=== PATIENT | female | born 1985 | race Caucasian/White ===

== ENCOUNTER 2020-08-12 10:14 | Outpatient (REF) | payer BC, SELFPAY | END 2020-08-12 10:15 | disposition home or self-care (01) | LOC: HO.LAB 10:14 | PROVIDERS: Visit Provider Internal Medicine | DX: Z20.828 Contact with and (suspected) exposure to other viral communicable diseases (principal) | CPT/HCPCS: C9803; U0003 ==

== ENCOUNTER 2021-03-16 21:01 | Emergency (ER) | payer BC, SELFPAY ==
[2021-03-16 21:02] VITALS: BP 137/79; PULSE 67; RESP 16; TEMP 36.6; O2SAT 100; BMI 20.9
--- NOTE | 2021-03-16 22:27 | ED.EYEPROB ---
HPI - Eye Problem General Chief complaint: Eye Problems Stated complaint: Eye pain Time Seen by Provider: 03/16/21 22:27 Source: patient Mode of arrival: ambulatory Limitations: no limitations History of Present Illness chief complaint: eye redness Onset (ago): day(s) (1) Onset description: gradual Location: left eye Eye Symptoms: redness Place: home Mechanism: none Severity: mild Associated symptoms: none Treatments Prior to Arrival: none Related Data Patient tetanus UTD: Yes Previous Rx's Medication Instructions Recorded polymyxin B sulf-trimethoprim 1 drp OPHTHALMIC-LEFT QID 5 Days 03/16/21 [Polytrim] #10 ml Allergies Allergy/AdvReac Type Severity Reaction Status Date / Time No Known Allergies Allergy Unverified 06/12/20 15:52 Review of Systems Review of Systems: Constitutional: No Weight loss, No Fever, No Chills, No Night Sweats, No Fatigue, No Malaise ENT/Mouth: No Hearing loss, No Ear Pain, No Nasal Congestion, No Sinus Pain, No Hoarseness, No sore throat, No Rhinorrhea, No Swallowing Difficulty Eyes: No Eye Pain, No Swelling, No Redness, No Foreign Body, No Discharge, No Vision Changes Cardiovascular: No Chest Pain, No SOB, No Dyspnea on Exertion, No Orthopnea, No Edema, No Palpitations Respiratory: No Cough, No Sputum, No Wheezing, No Smoke Exposure, No Dyspnea Skin: No Skin Lesions, No rash Neuro: No Weakness, No Numbness, No Paresthesias, No Loss of Consciousness, No Dizziness, No Headache Psych: No Anxiety/Panic Heme/Lymph: No Bruising, No Bleeding,No Lymphadenopathy Endocrine: No Polyuria, No Polydipsia, No Temperature Intolerance Yes all other systems are reviewed and are negative [facility] Past Medical History Medical History No known health problems Social History Social History Advance Directives: No Advance Directives Information Provided: Yes Patient : No Physical Exam Vital Signs: Vital Signs: Last Vital Signs Temp 97.8 F 03/16/21 21:02 Pulse 67 03/16/21 21:02 Resp 16 03/16/21 21:02 BP 137/79 03/16/21 21:02 Pulse Ox 100 03/16/21 21:02 Body Mass Index 20.9 Review Const: General: cooperative, healthy appearing, comfortable, no acute distress, well developed, alert and awake HENMT: Head: Yes normal to inspection Ears: hearing grossly normal bilaterally Eyes: General: appearance normal, both eyes and all related structures Visual Soni: normal visual soni by confrontation Eyelids: Yes eyelids normal Conjunctivae: conjunctival abnormal left subconjunctival hemorrhage (Very small in the left inferior aspect) Sclerae: sclerae normal Corneas: corneas normal Pupils: Equal, round and reactive pupils present Neck: Neck: Yes normal visual inspection Chest: Chest palpation & inspection: normal inspection of the chest and normal palpation of entire chest wall Resp: Effort & Inspection: normal respiratory effort, no audible wheezes, no cough and no respiratory distress Skin: General skin exam: no rashes or lesions noted, elasticity normal and turgor normal Wounds: no wounds Nails: normal Neuro: General: normal sensation to monofilament Cranial nerves: Yes Equal, round and reactive pupils present Extrem: General: No cyanosis Psych: Appearance: grossly normal and well kempt Course Course Course Narrative: Fracture versus irritant conjunctivitis will treat, educated, return and follow-up instructions provided. Does not wear contacts. No foreign body. Discharge Plan Discharge Clinical Impression: Conjunctivitis Patient Disposition: Home, Self-Care Instructions: Conjunctivitis (ED) Prescriptions: New polymyxin B sulf-trimethoprim [Polytrim] 10,000 unit- 1 mg/mL drops 1 drp ophthalmic-Left QID 5 Days Qty: 10 RF: 0 Referrals: Aileen Hankins MD [Primary Care Provider] - 5 days
== END 2021-03-16 22:55 | disposition home or self-care (01) ==
PROVIDERS: Emergency Provider Student in an Organized Health Care Education/Training Program; PCP Internal Medicine
DX: H10.9 Unspecified conjunctivitis (principal)
CPT/HCPCS: 99283

== ENCOUNTER 2024-12-26 08:48 | Outpatient (AMB) | payer BC, SELFPAY ==
--- NOTE | 2024-12-26 08:54 | MHC.OFFVIS ---
Intake Visit Reasons: Umbilical Hernia Intake Note: Patient referred by Dr. Hankins for Umbilical hernia. Noticed in 2020. Patient c/o: denies pain, bulging. Would like to get lipo and hernia has to be repaired. Pinking Machine Operator Required: No Allergies No Known Allergies Allergy (Unverified 12/26/24 08:57) HPI Comments Details: Patient presents with an umbilical hernia. She has had this since 2020. She would like to have it repaired. She otherwise tolerating a diet. She has regular bowel habits. She does occasional strenuous activities. Chart was reviewed and patient evaluated [facility] Medical History No known health problems Physical Exam Chest Other: Chest breath sounds bilaterally, HS 1 in 2 GI Other: Patient was examined both supine and standing with Valsalva. Abdomen is soft. Bilateral groin exam negative. Patient was a roughly 3 cm irreducible umbilical hernia Assessment & Plan Assessment & Plan (1) Incarcerated umbilical hernia: Code(s): K42.0 - Umbilical hernia with obstruction, without gangrene Category: Surgical Plan Risks, benefits, alternatives of 0 umbilical hernia repair with mesh were reviewed with the patient and included but not limited to bleeding, infection, recurrence, numbness, pain, scarring, bowel injury and the patient wishes to proceed. All questions answered. Arrangements will be made for this on a day which is convenient for her. Coding Level of Care Code New Pt Level 5 (65493) Diagnoses Incarcerated umbilical hernia K42.0
--- OUTSIDE RECORDS SUMMARY | 2024-12-26 09:26 | XMS_ITS | Patient Health Record ---
[facility] Organization [facility] Address [address] [place] [address] Care Team Providers Care Color Specialist Name Role Phone Cr HERNANDEZ, Aileen Primary Care Provider NATALIYA Lantigua Unavailable [phone] Allergies No Known Allergies Reason For Referral No Information Medications Medication SIG (Take, Route, Frequency, Duration) Notes Start Date End Date Status metroNIDAZOLE 500 MG 1 tablet Orally Twi ce a day for 7 days 07/23/2022 Not-Taking Metrogel 0.75 % 1 application PV qhs for 5 days 05/26/2021 Not-Taking metroNIDAZOLE 500 MG 1 tablet Orally Twi ce a day for 7 days 05/26/2021 Not-Taking miSOPROStol 200 MCG as directed Orally 8 -12 hrs prior to appointment for 1 days 10/20/2020 Not-Taking Social History Tobacco Use: Social History Observation Description Date Details (start date - stop date) Never Smoker NA - NA Tobacco Use/Smoking Question Answer Notes Are you a nonsmoker Alcohol Screen (Audit-C) Question Answer Notes Did you have a drink containing alcohol in the p ast year? No Points 0 Interpretation Negative Sexual History Question Answer Notes Had sex in the past 12 months (vaginal, oral, or anal)? Yes with Men only Use protection? No Have you ever had a Sexually transmitted disease ? No Last menstrual period 10/01/20 Problems Problem Type SNOMED Code ICD Code Onset Dates Problem Status W/U Status Risk Notes Problem Amenorrhea (96244970) Amenorrhea, unspecified (N91.2) Active confirmed Problem Abnormal uterine bleeding (25336016600306 ) Abnormal uterine and vaginal bleeding, unspecified (N93.9) Active confirmed Plan Of Treatment Pending Test Test Name Order Date Sonohysterogram 10/20/2020 Test, Urine 10/31/2020 Test, Urine 07/23/2022 ANTI-HEPATITIS C 07/23/2022 HEP. B SURF. AG 07/23/2022 SYPHILIS TESTING 07/23/2022 HIV AB-AG 4TH GENERATION 07/23/2022 Insurance Providers Payer Name Payer Address Payer Phone Subscriber Number Group Number Insured Name Patient Relationship to Insured Coverage Start Date Coverage End Date [employer] [place] [address] [place] [address] [phone] [id number] HIEN MICHEL Self - patient is the insured Medical (General) History Surgical History Surgery Date(Month/Year)
== END 2024-12-26 09:02 | disposition home or self-care (01) ==
LOC: HO.HGS 08:49
PROVIDERS: PCP Internal Medicine; Visit Provider Surgery
DX: K42.0 Umbilical hernia with obstruction, without gangrene (principal)
CPT/HCPCS: 99204

== ENCOUNTER 2025-02-06 15:35 | Outpatient (AMB) | payer BC, SELFPAY ==
--- NOTE | 2025-02-06 15:37 | A.OFFVIS_ITS ---
Vital Signs 02/06/25 15:44 Height 5 ft 2 in Weight 139 lb BMI 25.4 BP 152/80 H Blood Pressure Location Lt brachial Position Sitting Pulse 67 Intake Visit Reasons: Umbilical hernia with obstruction, without gangren Intake Note: Patient is seen in office to discuss surgery, umbilical hernia seen Dr Medina on 12/26/24. 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 She says that her plastic surgeon had mentioned this to her. She is going for liposuction/abdominoplasty procedure and her plastic surgeon had instructed her to have the umbilical hernia repair before her plastic surgery. She describes some discomfort on the umbilicus She denies any GI complaints She says she is in good health overall. [facility] Medical History (Updated 02/06/25 @ 15:57 by Walter Antonio MD) Umbilical hernia No known health problems Review of Systems Const Denies chills and Denies fever(s) Card Denies chest pain, Denies dyspnea and Denies dyspnea on exertion Resp Denies cough, Denies dyspnea and Denies dyspnea on exertion GI Denies hematochezia and Denies change in bowel habits Denies hematuria Musc Denies back pain and Denies limited range of motion Neuro Denies focal weakness and Denies convulsions Psych Denies depression and Denies mood swings Physical Exam Vital Signs: Last Vital Signs Pulse 67 02/06/25 15:44 BP 152/80 H 02/06/25 15:44 BMI result Body Mass Index 25.4 Const General: comfortable and no acute distress Orientation/consciousness: patient oriented x3 Neck Neck: Yes no lymphadenopathy Resp Auscultation: clear to auscultation bilaterally Cardio Rhythm: regular rhythm GI Other: Umbilical hernia reducible, about 1.5 cm in diameter Palpation (GI): Soft to palpation, nontender and no guarding Neuro General: patient oriented x3 Assessment & Plan Assessment & Plan (1) Umbilical hernia: Code(s): K42.9 - Umbilical hernia without obstruction or gangrene Category: Medical Plan She has a small, reducible umbilical hernia as described above. I explained to her the technique of repair of the umbilical hernia with possible mesh placement. I reviewed the risks including but not limited to bleeding, infections, injury to the bowel, recurrence, postop pain, as well as the benefits and alternatives. I also explained to her what to expect postoperatively. She understands and wants to proceed. Coding Level of Care Code New Pt Level 3 (66729) Diagnoses Umbilical hernia K42.9
--- OUTSIDE RECORDS SUMMARY | 2025-02-06 15:41 | XMS_ITS | Patient Health Record ---
[facility] Organization [facility] Address [address] [place] [address] Care Team Providers Care Kayak Maker Name Role Phone Cr HERNANDEZ, Aileen Primary Care Provider NATALIYA Lantigua Unavailable [phone] Allergies No Known Allergies Reason For Referral [...] Problem Status W/U Status Risk Notes Problem Amenorrhea, unspecified (N91.2) Active confirmed Problem Abnormal uterine bleeding (497291969610 00) Abnormal uterine and vaginal bleeding, unspecified (N93.9) [...] End Date [employer] [address] [place] [address] [id number] 11 HIEN MICHEL Self - patient is the insured Medical (General) History Surgical History Surgery Date(Month/Year)
--- OUTSIDE RECORDS SUMMARY | 2025-02-06 15:41 | XMS_ITS | Continuity of Care Document ---
Author Organization [facility] Address [address] [place] [address] Phone Care Team Providers Care Health And Wellness Coach Name Role Phone Morris Hobbs Unavailable Unavailable Advance Directives Directive Yes / No Effective Date File Name No Information Encounters Encounter Description Practice Location Reason(s) For Visit Diagnoses Date Provider Providers Copied on Encounter [facility], [address], [place], [place], [id number], tel:[phone] - [facility] No Information Anjel Caceres. [address] [place] [address] [address], [place], [facility], . tel:[phone] Referring Provider: Morris John, [address], [place], [facility]. tel:[phone] Family History Family Member Type Diagnosis Age At Onset No Information Payers Payer name Insurance type Covered alliance party ID Authorgladysa angiemina(s) [place] [id number] Social History Type Description Quantity Date Captured Comments Sex Female Smoking Status No Information Chief Complaint And Reason For Visit No Information Reason For Referral Reason For Referral No Information History Of Present Illness Encounter Date Complaint History Of Prese nt Illness No Information Functional Status Date Functional Assessmen t No Information Instructions Date Instruction Additional Infor mation No Information Assessments Type Assessment Date No Information Patient Care Teams Name Effective Dates (start - stop) Status Members No Information
[2025-02-06 15:44] VITALS: BP 152/80; PULSE 67; BMI 25.4
== END 2025-02-06 16:10 | disposition home or self-care (01) ==
LOC: HO.HGS 15:36
PROVIDERS: PCP Internal Medicine; Visit Provider Surgery
DX: K42.9 Umbilical hernia without obstruction or gangrene (principal)
CPT/HCPCS: 99203

== ENCOUNTER 2025-09-18 09:20 | Outpatient (AMB) | payer BC, SELFPAY ==
--- OUTSIDE RECORDS SUMMARY | 2025-09-18 09:24 | XMS_ITS | Patient Health Record ---
Author Organization [facility] Address [address] [place] [address] Care Team Providers Care Estimator Binding Name Role Phone Cr HERNANDEZ, Aileen Primary Care Provider NATALIYA Lantigua Unavailable [phone] Allergies No Known Allergies Reason For Referral No Information Medications Medication SIG (Take, Route, Frequency, Duration) Notes Start Date End Date Status metroNIDAZOLE 500 MG 1 tablet Orally Twi ce a day; Duration: 7 days 07/23/2022 Not-Taking Metrogel 0.75 % 1 application PV qhs ; Duration: 5 days 05/26/2021 Not-Taking metroNIDAZOLE 500 MG 1 tablet Orally Twi ce a day; Duration: 7 days 05/26/2021 Not-Taking miSOPROStol 200 MCG as directed Orally 8 -12 hrs prior to appointment; Duration: 1 days 10/20/2020 Not-Taking Social History Tobacco [...] Status W/U Status Risk Notes Problem Amenorrhea (46571451) Amenorrhea, unspecified (N91.2) Active confirmed Problem Abnormal uterine bleeding (35633167125892 ) Abnormal uterine and vaginal bleeding, unspecified [...] End Date [employer] [address] [place] [address] [id number] 11 HIEN MICHEL Self - patient is the insured Medical (General) History Surgical History Surgery Date(Month/Year)
--- OUTSIDE RECORDS SUMMARY | 2025-09-18 09:24 | XMS_ITS | Patient Health Record ---
Author [facility] Address [address] [place] [address] Care Team Providers Care Betting Clerks Name Role Phone Юлия Castillo Unavailable [phone] Reason For Referral No Information Problems Problem Type SNOMED Code ICD Code Onset Dates Problem Status W/U Status Risk Notes Problem Hallux valgus (938652543) Hallux Valgus (735.0) Active confirmed Problem Hammer toe (527140865) Hammer toe (735.4) Active confirmed Problem Pain in limb (39794687) Pain in Limb (729.5) Active confirmed Plan Of Treatment Pending Test Test Name Order Date X ray : Foot, left 3V 02/09/2012 X ray : Foot, right 3V 02/09/2012 Insurance Providers Payer Name Payer Address Payer Phone Subscriber Number Group Number Insured Name Patient Relationship to Insured Coverage Start Date Coverage End Date [employer] [address] [address] [place] [address] [phone] [id number] [phone] [id number] Katy Horne Self - patient is the insured
--- NOTE | 2025-09-18 09:27 | A.OFFVIS_ITS ---
Vital Signs 09/18/25 09:34 Height 5 ft 2 in Weight 145 lb 2 oz BMI 26.5 BP 125/87 Blood Pressure Location Lt brachial Position Sitting Pulse 84 Intake Visit Reasons: re-discuss hernia surgery Intake Note: Patient is seen in office to re-discuss surgery, following for umbilical hernia. Pt c/o: denies any changes since last visit Paving Machine Operator Required: No Accompanied by: se Allergies No Known Allergies Allergy (Unverified 12/26/24 08:57) Medication List - Last Reconciled 09/18/25 by Walter Antonio MD No Known Home Meds HPI HPI re-discuss hernia surgery: Details: 39-year-old female here for follow-up for an umbilical hernia. She says that her plastic surgeon had mentioned this to her. She is going for liposuction/abdominoplasty procedure and her plastic surgeon had instructed her to have the umbilical hernia repair before her plastic surgery. She says that she does not think that she is going to have liposuction anymore but feels that the hernia has increased in size. She describes increasing discomfort on the umbilicus . I had actually seen her for this last Jan, 2025. She was supposed to have surgery for repair of the umbilical hernia. She denies any GI complaints She says she is in good health overal. [facility] Medical History Umbilical hernia No known health problems Review of Systems Const Denies chills and Denies fever(s) Card Denies chest pain, Denies dyspnea and Denies dyspnea on exertion Resp Denies cough, Denies dyspnea and Denies dyspnea on exertion GI Denies hematochezia and Denies change in bowel habits Denies hematuria Musc Denies back pain and Denies limited range of motion Neuro Denies focal weakness and Denies convulsions Psych Denies depression and Denies mood swings Physical Exam Vital Signs: Last Vital Signs Pulse 84 09/18/25 09:34 BP 125/87 09/18/25 09:34 BMI result Body Mass Index 26.5 Const General: comfortable and no acute distress Orientation/consciousness: patient oriented x3 Neck Neck: Yes no lymphadenopathy Resp Auscultation: clear to auscultation bilaterally Cardio Rhythm: regular rhythm GI Other: Umbilical hernia, reducible partially, about 1.5 cm, nontender, no skin changes Palpation (GI): Soft to palpation, nontender and no guarding Neuro General: patient oriented x3 Assessment & Plan Assessment & Plan (1) Umbilical hernia: Code(s): K42.9 - Umbilical hernia without obstruction or gangrene Category: Medical Plan: She has a small, reducible umbilical hernia as described above. She had been previously scheduled for repair earlier this year but she says that for some reason she was unable to do this. I reviewed with her the technique of repair of the umbilical hernia with possible mesh placement. I reviewed the risks including but not limited to bleeding, infections, injury to the bowel, recurrence, postop pain, as well as the benefits and alternatives. I also explained to her what to expect postoperatively. She understands and wants to proceed. Orders: Referrals General Surgery Procedure Notification K42.9 - Umbilical hernia without obstruction or gangrene Coding Level of Care Code Est Pt Level 3 (85696) Diagnoses Umbilical hernia K42.9
[2025-09-18 09:34] VITALS: BP 125/87; PULSE 84; BMI 26.5
== END 2025-09-18 09:49 | disposition home or self-care (01) ==
LOC: HO.HGS 09:21
PROVIDERS: PCP Internal Medicine; Visit Provider Surgery
DX: K42.9 Umbilical hernia without obstruction or gangrene (principal)
CPT/HCPCS: 99213